=== PATIENT | male | born 1945 | race Caucasian/White ===

== ENCOUNTER 2017-04-01 13:50 | Emergency (ER) | payer BC, OTHER ==
[2017-04-01 14:24] VITALS: BP 130/64
--- NOTE | 2017-04-01 14:40 | RAD ---
Indication: Fall, left elbow injury. 3 views of left elbow are reviewed. There is suggestion of anterior fat pad sign suggestive of a joint effusion. There is question of a radial head fracture that is not displaced. IMPRESSION: Question of a radial head fracture with joint effusion.
--- NOTE | 2017-04-22 07:23 | UC ---
Elbow Pain - HPI Summary HPI Summary: 71 y/o male wit hx of body rigidity / unsteady gate for the past few months, has been seen by the neurologist in regards to this problem. s/p fall 2 hrs ago on his left side , injury to his left elbow and right thumb. no head injury . - History of Current Complaint Chief Complaint: UCGeneralIllness Stated Complaint: FELL-HEAD/ELBOW (DOZING & SHAKING) Time Seen by Provider: 04/01/17 14:05 Hx Obtained From: Patient, Family/Theatrical Dresser Onset/Duration: Hours - 2, Still Present Severity Initially: Moderate Severity Currently: Moderate Pain Intensity: 5 Pain Scale Used: 0-10 Numeric Location Of Pain: Is Discrete @ - left elbow , right thumb Character: Aching Aggravating Factor(s): Movement Alleviating Factor(s): Rest, Ice Associated Signs And Symptoms: Positive: Swelling. Negative: Negative, Redness , Bruising, Fever, Weakness, Numbness/Tingling - Allergies/Home Medications Allergies/Adverse Reactions: Allergies Allergy/AdvReac Type Severity Reaction Status Date / Time Codeine Allergy Unknown Unknown Verified 04/01/17 13:56 Reaction Details Erythromycin Allergy Unknown Unknown Verified 04/01/17 13:56 Reaction Details Sulfamethoxazole Allergy Unknown Unknown Verified 04/01/17 13:56 w/Trimethoprim Reaction [From Bactrim] Details Home Medications: Home Medications Baclofen TAB* [Lioresal TAB*] 5 mg PO DAILY 04/01/17 [History Confirmed 04/01/17 ] PMH/Surg Hx/FS Hx/Imm Hx Cardiovascular History: Hypertension - Surgical History Surgical History: Yes Surgery Procedure, Year, and Place: Tonsillectomy; Cervical Fusion; Back Surgery ; Pump Insertion; Pump Repolacement 06/23; analgesic morphine pump LUQ in place - Family History Known Family History: Positive: Respiratory Disease - Social History Alcohol Use: None Substance Use Type: None Substance Use Comment - Amount & Last Used: hydromorphone Smoking Status (MU): Former Smoker Type: Cigarettes Amount Used/How Often: 1 PACK A DAY Length of Time of Smoking/Using Tobacco: 14 YEARS Have You Smoked in the Last Year: No When Did the Patient Quit Smoking/Using Tobacco: 1975 Household Exposure Type: Cigarettes - Immunization History Most Recent Influenza Vaccination: 2016 Most Recent Tetanus Shot: UTD Most Recent Pneumonia Vaccination: UTD Review of Systems Constitutional: Negative Skin: Negative Eyes: Negative ENT: Negative Respiratory: Negative Cardiovascular: Negative Genitourinary: Negative Neurovascular: Other - unsteady gait All Other Systems Reviewed And Are Negative: Yes Physical Exam Triage Information Reviewed: Yes Appearance: Well-Appearing, No Pain Distress, Well-Nourished Vital Signs: Initial Vital Signs Temp 98 F 04/01/17 14:01 Pulse 113 04/01/17 14:01 Resp 18 04/01/17 14:01 BP 130/64 04/01/17 14:01 Pulse Ox 91 04/01/17 14:01 Vital Signs Reviewed: Yes Eyes: Positive: Conjunctiva Clear ENT: Positive: Normal ENT inspection, Hearing grossly normal, Pharynx normal Neck exam: Normal Neck: Positive: Supple, Nontender, No Lymphadenopathy Respiratory: Positive: Chest non-tender, Lungs clear, Normal breath sounds Cardiovascular: Positive: RRR, No Murmur, Pulses Normal Abdominal Exam: Normal Musculoskeletal: Positive: Other: - left elbow: + effusion , diffuse tenderness , decrease ROM on flexion and extension right thumb: + swelling, tender, decrease ROM on flexion Neurological Exam: Normal Neurological: Positive: Abnormal Muscle Tone Elbow Pain Course/Dx - Differential Dx/Diagnosis Provider Diagnoses: left elbow pain. left elbow effusion. right thumb sprain Discharge - Discharge Plan Condition: Stable Disposition: HOME Patient Education Materials: Swollen Joint (ED) Referrals: Baltazar Arguelles MD [Medical Doctor] - Jamila Spring MD [Primary Care Provider] - Additional Instructions: injury to right elbow, cont. with rest, ice, arm sling, xray : + fatpad sign, concern about fracture will have you follow up with ortho ismael
== END 2017-04-01 14:43 | disposition home or self-care (01) ==
LOC: UCCORT 13:50
DX: M25.522 Pain in left elbow (principal); M25.422 Effusion, left elbow; S63.601A Unspecified sprain of right thumb, initial encounter; W19.XXXA Unspecified fall, initial encounter; Y93.9 Activity, unspecified; Y92.9 Unspecified place or not applicable; R26.81 Unsteadiness on feet; I10 Essential (primary) hypertension; Z88.1 Allergy status to other antibiotic agents; Z88.5 Allergy status to narcotic agent; Z88.2 Allergy status to sulfonamides; Z87.891 Personal history of nicotine dependence
CPT/HCPCS: 99213; G0463

== ENCOUNTER 2017-09-12 07:23 | Emergency (ER) | payer BC, OTHER ==
[2017-09-12 07:54] VITALS: BP 145/48
--- NOTE | 2017-09-12 07:58 | UC ---
Cardiac HPI - HPI Summary HPI Summary: FELL 9 DAYS AGO AND DEVELOPED RIGHT LOWER RIB CAGE PAIN. OVER PAST FEW DAYS DEVELOPED PAIN ACROSS CHEST. WORSE WITH DEEP BREATHS, NO NAUSEA. HAS COPD AND REPORTS BORDERLINE LOW OXYGEN AT BASELINE. DENIES SOB OUTSIDE OF HIS USUAL. - History of Current Complaint Chief Complaint: UCChestPain Stated Complaint: CHEST PAIN Time Seen by Provider: 09/12/17 07:34 Hx Obtained From: Patient, Family/Color Depositing Machine Tender - Onset/Duration: Gradual Onset, Lasting Days, Still Present Timing: Constant Initial Severity: Moderate Current Severity: Moderate Pain Intensity: 8 Chest Pain Location: Mid Sternal, Left Anterior, Right Anterior Character: Sharp/Stabbing Aggravating Factor(s): Movement, Deep Breaths Alleviating Factor(s): Nothing Associated Signs & Symptoms: Positive: Chest Pain. Negative: Weakness, Dizziness, SOB, Diaphoresis, Nausea/Vomiting, Palpitations - Allergy/Home Medications Allergies/Adverse Reactions: Allergies Allergy/AdvReac Type Severity Reaction Status Date / Time Codeine Allergy Unknown Unknown Verified 09/12/17 07:51 Reaction Details Erythromycin Allergy Unknown Unknown Verified 09/12/17 07:51 Reaction Details Sulfamethoxazole Allergy Unknown Unknown Verified 09/12/17 07:51 w/Trimethoprim Reaction [From Bactrim] Details Home Medications: Home Medications Acetaminophen [Acetaminophen Extra Stren] 500 - 1,000 mg PO Q6H PRN 09/12/17 [ History Confirmed 09/12/17] Albuterol HFA INHALER* [Ventolin HFA Inhaler*] 2 puff INH Q6H PRN 09/12/17 [ History Confirmed 09/12/17] Amitriptyline TAB* [Elavil TAB*] 25 mg PO DAILY 09/12/17 [History Confirmed 10/29] Amitriptyline TAB* [Elavil TAB*] 100 mg PO DAILY 09/12/17 [History Confirmed 10/29] Baclofen TAB* [Lioresal TAB*] 5 mg PO TID PRN 09/12/17 [History Confirmed ] Bupivacaine 0.5% SDV PF* [Marcaine 0.5% SDV PF*] 2.5 mg ASSEMBLER SHOW [employer]OR SEE INSTRUCTIONS 10/29 [History Confirmed 09/12/17] Bupropion XL* [Wellbutrin XL *] 150 mg PO QAM 09/12/17 [History Confirmed ] DULoxetine DR CAP* [Cymbalta CAP*] 60 mg PO DAILY 09/12/17 [History Confirmed ] Docusate CAP* [Colace Cap*] 400 mg PO DAILY 09/12/17 [History Confirmed 09/12/17 ] Donepezil TAB* [Aricept 5 MG TAB*] 10 mg PO DAILY 09/12/17 [History Confirmed ] Fluticasone NASAL SPRAY 50MCG* [Flonase NASAL SPRAY 50MCG*] 2 spray BOTH NARES DAILY 09/12/17 [History Confirmed 09/12/17] Fluticasone/Vilanterol MDI(NF) [Breo Ellipta MDI 100/25(NF)] 1 puff INH DAILY [History Confirmed 09/12/17] HYDROmorphone ASSEMBLER SHOW MOTOR *HIGH DOSE* [Dilaudid ASSEMBLER SHOW MOTOR *HIGH DOSE*] 6.5 mg ASSEMBLER SHOW MOTOR SEE INSTRUCTIONS 09/12/17 [History Confirmed 09/12/17] HYDROmorphone TAB* [Dilaudid Tab*] 4 - 6 mg PO TID 09/12/17 [History Confirmed 09/12/17] Lovastatin (NF) [Mevacor (NF)] 40 mg PO DAILY 09/12/17 [History Confirmed ] Omeprazole CAP* [Prilosec CAP* 20 MG] 20 mg PO DAILY 09/12/17 [History Confirmed 09/12/17] Pregabalin CAP(*) [Lyrica CAP(*)] 100 mg PO TID 09/12/17 [History Confirmed 10/29] Torsemide TAB* [Demadex 20 MG*] 20 mg PO DAILY 09/12/17 [History Confirmed 09/12] Vitamin THERAPEUTIC TAB* [Theragran TAB*] 1 tab PO DAILY 09/12/17 [History Confirmed 09/12/17] PMH/Surg Hx/FS Hx/Imm Hx - Additional Past Medical History Additional PMH: CHRONIC PAIN DUE TO BACK INJURY/SURGERY 1990s Respiratory History: COPD - Surgical History Surgical History: Yes Surgery Procedure, Year, and Place: Tonsillectomy;. Cervical Fusion;. [employer] [place] 8637-40 Pump Insertion; Pump Replacement 06/23; analgesic morphine pump LUQ in place - Family History Known Family History: Positive: Respiratory Disease - Social History Alcohol Use: None Substance Use Type: None Substance Use Comment - Amount & Last Used: hydromorphone Smoking Status (MU): Former Smoker Type: Cigarettes Amount Used/How Often: 1 PACK A DAY Length of Time of Smoking/Using Tobacco: 14 YEARS Have You Smoked in the Last Year: No When Did the Patient Quit Smoking/Using Tobacco: 1975 Household Exposure Type: Cigarettes - Immunization History Most Recent Influenza Vaccination: 2016 Most Recent Tetanus Shot: UTD Most Recent Pneumonia Vaccination: UTD Review of Systems Constitutional: Negative Skin: Negative ENT: Negative Respiratory: Negative Cardiovascular: Chest Pain Gastrointestinal: Negative Musculoskeletal: Arthralgia, Myalgia All Other Systems Reviewed And Are Negative: Yes Physical Exam Triage Information Reviewed: Yes Appearance: No Pain Distress, Well-Nourished, Ill-Appearing - APPEARS CHRONICALY ILL Vital Signs: Initial Vital Signs Temp 98.1 F 09/12/17 07:33 Pulse 97 09/12/17 07:33 Resp 18 09/12/17 07:33 BP 145/48 09/12/17 07:33 Pulse Ox 86 09/12/17 07:33 Vital Signs Reviewed: Yes Eyes: Positive: Conjunctiva Clear ENT: Positive: Hearing grossly normal Neck: Positive: Supple Respiratory: Positive: No respiratory distress, No accessory muscle use, Crackles - BILATERAL BASES Cardiovascular: Positive: RRR - WITH FREQUENT ECTOPIC BEATS Abdomen Description: Positive: Soft Musculoskeletal: Positive: No Edema Neurological: Positive: Alert Psychological: Positive: Normal Response To Family, Age Appropriate Behavior Skin: Negative: rashes Diagnostics - EKG Cardiac Rate: NL Cardiac Rhythm: Sinus: Normal - 93BPM Ectopy: PACs ST Segment: Normal - Assessment/Plan Course Of Treatment: ADVISED ER TRANSFER BY AMBULANCE. PT DECLINES. DISCUSSED SERIOUS NATURE OF LOW OXYGEN LEVELS AND FREQUENT ECTOPIC BEATS. PT CONTINUES TO DECLINE. REPORTS HE WILL GO TO ER LATER IF PAIN PERSISTS. SIGNED OUT AMA - Clinical Impression Provider Diagnoses: CHEST PAIN, HYPOXIA Discharge - Discharge Plan Condition: Guarded Disposition: AGAINST MEDICAL ADVICE Referrals: Jamila Spring MD [Medical Doctor] -
== END 2017-09-12 07:56 | disposition left against medical advice (07) ==
LOC: UCCORT 07:23
DX: R07.89 Other chest pain (principal); R09.02 Hypoxemia; J44.9 Chronic obstructive pulmonary disease, unspecified; Z88.1 Allergy status to other antibiotic agents; Z88.5 Allergy status to narcotic agent; Z88.2 Allergy status to sulfonamides; Z87.891 Personal history of nicotine dependence
CPT/HCPCS: 93005; 99212; G0463